=== PATIENT | female | born 1955 | race Asian ===

== ENCOUNTER → 2018-10-27 | Outpatient (CLI) | payer MEDICARE ==
[~2018-10-27] MED LIST: ALBU8.5H8 INH; ALLO300T PO; AMLO-150 PO; AMLO2.5T2 PO; ATOR20TA37 PO; BUDE10.2 INH; CEFD300C37 PO; CETI10CA PO; COLC0.6T37 PO; DIAZ5TAB4 PO; DOCU-131 PO; ERGO500017 PO; FLUT16SP2 INH; FLUT1BLS IH; FURO-93 PO; GLIM4TAB2 PO; HYDR-2442 PO; HYDR-3237 PO; HYDR-3341 PO; INSU100C SQ; INSU100V13 SC; INSU100V9 SC; LATA7.5D EACH EAR; LETR2.5T PO; LEVO250T8 PO; LEVO25TA2 PO; LEVO25TA4 PO; LINA145C PO; LIRA0.6P INJ; LISI-170 PO; LISI1TAB3 PO; LORA0.5T PO; MECL25TA4 PO; METO10TA2 PO; MONT10TA6 PO; NYST1000 PO; OMEP-110 PO; ONDA4TAB10 PO; ONDA4TAB13 PO; OXYC-302 PO; OXYC10TA6 PO; PANT40TA3 PO; PANT40TA5 PO; PARO10TA3 PO; ROSU20TA2 PO; TIOT18CA INH; TRAZ-137 PO; [UNRECOGNIZED DRUG - CODE] PO
== END | disposition home or self-care (01) ==
LOC: CFH 14:33
PROVIDERS: ATTEND Nurse Practitioner Family
DX: N63.20 Unspecified lump in the left breast, unspecified quadrant (principal); N64.4 Mastodynia; N19 Unspecified kidney failure; Z85.3 Personal history of malignant neoplasm of breast; Z99.2 Dependence on renal dialysis
CPT/HCPCS: 76641; 77066; G0279

== ENCOUNTER 2018-10-30 00:11 | Emergency (ER) | payer MEDICARE ==
[~2018-10-30] VITALS: Ht 157.5 cm; Wt 80.0 kg
[~2018-10-30 00:11] MED LIST changes: -LINA145C PO; -OXYC10TA6 PO
--- NOTE | 2018-10-30 00:17 | NUR ---
PT TO LOBBY, WAIT TIME EXPLAINED.
--- NOTE | 2018-10-30 00:40 | NUR ---
PT AMBULATED TO ROOM, AWAIT
[2018-10-30] MEDS ORDERED: METHYLNALTREXONE 12 MG/0.6 ML SQ ONE (01:00)
[2018-10-30] MEDS ORDERED: ZIPRASIDONE 20 MG INJ IM ONE ×2 (01:00→01:04)
[2018-10-30 01:04] LABS: BASOPHILS # (AUTO) 0.06 x10^3/uL (0-0.1); BASOPHILS % (AUTO) 1 % (0-1); EOSINOPHILS # (AUTO) 0.67 x10^3/uL (0-0.4); EOSINOPHILS % (AUTO) 9 % (1-7); LYMPHOCYTES # (AUTO) 1.21 x10^3/uL (1-3.4); LYMPHOCYTES % (AUTO) 16 % (22-44); MD NO; MEAN CORPUSCULAR HEMOGLOBIN 30.2 pg (27.0-34.8); MEAN CORPUSCULAR HGB CONC 33.1 g/dL (32.4-35.8); MEAN CORPUSCULAR VOLUME 91.1 fL (80-100); MEAN PLATELET VOLUME 7.1 fL (7.4-10.4); MONOCYTES # (AUTO) 0.66 x10^3/uL (0.2-0.8); MONOCYTES % (AUTO) 8 % (2-9); NEUTROPHILS # (AUTO) 5.18 x10^3/uL (1.8-6.8); NEUTROPHILS % (AUTO) 67 % (42-75); PLATELET COUNT 264 x10^3/uL (130-400); RED BLOOD COUNT 3.31 x10^6/uL (3.82-5.3); RED CELL DISTRIBUTION WIDTH 18.3 % (9.6-15.2)
[2018-10-30 01:16] LABS: ALANINE AMINOTRANSFERASE 17 U/L (12-78); ALBUMIN 2.9 g/dL (3.4-5.0); ANION GAP 8 mmol/L (5-15); CALCIUM 8.3 mg/dL (8.5-10.1); CHLORIDE 101 mmol/L (98-107); CREATININE 3.96 mg/dL (0.55-1.02)
[2018-10-30 01:21] LABS: ALKALINE PHOSPHATASE 116 U/L (45-117); BILIRUBIN,TOTAL 0.6 mg/dL (0.2-1.0); TOTAL PROTEIN 6.1 g/dL (6.4-8.2); TROPONIN I 0.021 ng/mL (0.000-0.045)
--- NOTE | 2018-10-30 02:40 | NUR ---
ASSISTED PT TO BEDSIDE COMMODE. PT ABLE TO PROVIDE URINE SAMPLE. URINE SENT TO LAB. PT C/O BEING DIZZY. ERP AWARE. PT BACK IN BED, BILAT BEDRAILS UP. PT DESATING TO 85% ON RA. PT REPOSITIONED IN BED. WILL CONTINUE TO MONITOR.
[2018-10-30] MEDS ORDERED: LINA145C PO (02:48)
[2018-10-30] MEDS ORDERED: OXYC10TA6 PO (02:48)
[2018-10-30 02:49] LABS: MICROSCOPIC AUTO
[2018-10-30 02:50] LABS: CULTURE INDICATED? NO
[2018-10-30] MEDS ORDERED: MECLIZINE CHEWABLE 25 MG TAB PO ONE (03:00)
--- NOTE | 2018-10-30 03:14 | NUR ---
UNABLE TO DC PT, PT IS DESTING TO 83% ON RA. PT PLACED ON 3L O2. PT NOW SATING 98%. WILL CONTINUE TO MONITOR.
--- NOTE | 2018-10-30 03:38 | NUR ---
O2 DECREASED TO 1L PER N/C. PT SATING 98%.
[2018-10-30] MEDS ORDERED: MECLIZINE CHEWABLE 25 MG TAB ONE (03:47)
[2018-10-30 04:05] VITALS: BP 163/58
== END 2018-10-30 04:07 | disposition home or self-care (01) ==
LOC: ED 03:55
DX: R10.84 Generalized abdominal pain (principal); R11.2 Nausea with vomiting, unspecified; K59.00 Constipation, unspecified; E11.22 Type 2 diabetes mellitus with diabetic chronic kidney disease; I12.9 Hypertensive chronic kidney disease with stage 1 through stage 4 chronic kidney disease, or unspecified chronic kidney disease; N18.9 Chronic kidney disease, unspecified; J44.9 Chronic obstructive pulmonary disease, unspecified; Z90.710 Acquired absence of both cervix and uterus; Z87.891 Personal history of nicotine dependence; Z88.8 Allergy status to other drugs, medicaments and biological substances; Z85.3 Personal history of malignant neoplasm of breast
CPT/HCPCS: 36415; 74176; 80053; 81001; 83690; 84484; 85025; 96372; 99284; J3486

== ENCOUNTER 2018-11-21 16:27 | Emergency (ER) | payer MEDICARE ==
[~2018-11-21] VITALS: Ht 154.9 cm; Wt 79.0 kg
[~2018-11-21 16:27] MED LIST changes: +LINA145C PO; +OXYC10TA6 PO
--- NOTE | 2018-11-21 16:50 | NUR ---
First contact with pt. Pt c/o diffuse abd pain, states no BM x7 days. Pt states tried multiple OTC remedies without relief. Pt also states that her dialysis cath in her R upper chest is itching. Pt c/o DEMARCO and N/V as well. Pt placed in gown, positioned for comfort in bed with warm blanket. Continuous oxygen and BP monitors applied, all safety measures observed.
--- NOTE | 2018-11-21 17:02 | NUR ---
Dr. Kahn at bedside to evaluate pt.
[2018-11-21] MEDS ORDERED: ONDANSETRON ODT 8 MG ONE (17:08)
--- NOTE | 2018-11-21 17:13 | NUR ---
Pt medicated per OCT. Pt to xray via [place] at this time.
[2018-11-21] MEDS ORDERED: ONDANSETRON ODT 8 MG PO ONE (17:30)
--- NOTE | 2018-11-21 17:44 | NUR ---
Pt back from xray, resting in bed, no longer nauseous after meds.
[2018-11-21 17:59] LABS: ALBUMIN 2.8 g/dL (3.4-5.0); ANION GAP 8 mmol/L (5-15); CALCIUM 8.2 mg/dL (8.5-10.1); CHLORIDE 101 mmol/L (98-107); CREATININE 3.18 mg/dL (0.55-1.02)
[2018-11-21 18:06] LABS: BASOPHILS # (AUTO) 0.02 x10^3/uL (0-0.1); BASOPHILS % (AUTO) 0 % (0-1); EOSINOPHILS # (AUTO) 0.12 x10^3/uL (0-0.4); EOSINOPHILS % (AUTO) 2 % (1-7); LYMPHOCYTES # (AUTO) 0.66 x10^3/uL (1-3.4); LYMPHOCYTES % (AUTO) 10 % (22-44); MD NO; MEAN CORPUSCULAR HGB CONC 33.4 g/dL (32.4-35.8); MEAN PLATELET VOLUME 7.5 fL (7.4-10.4); MONOCYTES # (AUTO) 0.45 x10^3/uL (0.2-0.8); MONOCYTES % (AUTO) 7 % (2-9); NEUTROPHILS # (AUTO) 5.09 x10^3/uL (1.8-6.8); NEUTROPHILS % (AUTO) 80 % (42-75); PLATELET COUNT 205 x10^3/uL (130-400); RED BLOOD COUNT 3.32 x10^6/uL (3.82-5.3); RED CELL DISTRIBUTION WIDTH 18.2 % (9.6-15.2)
[2018-11-21] MEDS ORDERED: METHYLNALTREXONE 12 MG/0.6 ML SQ ONE (18:30)
[2018-11-21] MEDS ORDERED: PINK LADY ENEMA 490 ML BOTTLE PR ONE (18:30)
--- NOTE | 2018-11-21 18:35 | NUR ---
[place] lady enema administered. Pt attempting to retain enema at this time.
--- NOTE | 2018-11-21 18:38 | NUR ---
Pt states she is unable to hold enema in any longer. Pt up to bedside commode to attempt BM.
--- NOTE | 2018-11-21 18:52 | NUR ---
Pt able to pass moderate amount of stool. Pt states she feels a little better "but there's still something there." Reported to Dr. Kahn.
--- NOTE | 2018-11-21 19:00 | NUR ---
REPORT RECEIVED FROM BRAYAN LEROY. PT RESTING QUIETLY, NO DISTRESS NOTED, BEDSIDE COMMODE IN ROOM, CALL LIGHT IN REACH
[2018-11-21 20:03] VITALS: BP 176/68
== END 2018-11-21 20:27 | disposition home or self-care (01) ==
LOC: ED 17:51
DX: K59.00 Constipation, unspecified (principal); R10.84 Generalized abdominal pain; K21.9 Gastro-esophageal reflux disease without esophagitis; I12.9 Hypertensive chronic kidney disease with stage 1 through stage 4 chronic kidney disease, or unspecified chronic kidney disease; E11.22 Type 2 diabetes mellitus with diabetic chronic kidney disease; N18.9 Chronic kidney disease, unspecified; E03.9 Hypothyroidism, unspecified; J44.9 Chronic obstructive pulmonary disease, unspecified; Z90.49 Acquired absence of other specified parts of digestive tract; Z88.2 Allergy status to sulfonamides; Z88.8 Allergy status to other drugs, medicaments and biological substances
CPT/HCPCS: 36415; 74021; 80048; 82040; 83690; 85025; 96372; 99284; Q0162

== ENCOUNTER 2019-08-31 09:22 | Outpatient (CLI) | payer MEDICARE ==
[~2019-08-31 09:22] MED LIST changes: +CARV6.252 PO; +FLUT1BLS INH; -GLIM4TAB2 PO; +GLIM4TAB8 PO; -LETR2.5T PO; +LETR2.5T3 PO; +LISI1TAB23 PO; -LISI1TAB3 PO; +MECL-101 PO; -MECL25TA4 PO; +NOVALOG SQ; +OMEP10CA5 PO; -TRAZ-137 PO; +TRAZ-175 PO
== END 2019-08-31 23:59 | disposition home or self-care (01) ==
LOC: CFH 09:22
PROVIDERS: ATTEND Internal Medicine
DX: Z13.820 Encounter for screening for osteoporosis (principal); C50.412 Malignant neoplasm of upper-outer quadrant of left female breast; R92.2 Inconclusive mammogram; Z78.0 Asymptomatic menopausal state
CPT/HCPCS: 76642; 77066; 77080; G0279

== ENCOUNTER 2020-02-02 10:34 | Emergency (ER) | payer MEDICARE ==
[~2020-02-02] VITALS: Ht 154.9 cm; Wt 57.7 kg
--- NOTE | 2020-02-02 11:04 | NUR ---
PT C/O HARDER TO BREATHE AFTER MISSING DIALYSIS ON THURSDAY. EAR INFECTION BEING TREATED AFTER SEEN AT A FEW DAYS AGO. LOWER ABD PAIN STARTED THIS AM AFTER EATING STEAK AND EGGS FOR BREAKFAST. PT CONNECTED TO MONITORING. CALL LIGHT IN REACH. SPOUSE AT BEDSIDE.
[2020-02-02 12:02] LABS: BASOPHILS # (AUTO) 0.02 x10^3/uL (0-0.1); BASOPHILS % (AUTO) 1 % (0-1); EOSINOPHILS % (AUTO) 5 % (1-7); LYMPHOCYTES # (AUTO) 1.04 x10^3/uL (1-3.4); LYMPHOCYTES % (AUTO) 24 % (22-44); MD NO; MEAN CORPUSCULAR HEMOGLOBIN 32.8 pg (27.0-34.8); MEAN CORPUSCULAR HGB CONC 33.2 g/dL (32.4-35.8); MEAN PLATELET VOLUME 7.3 fL (7.4-10.4); MONOCYTES # (AUTO) 0.31 x10^3/uL (0.2-0.8); MONOCYTES % (AUTO) 7 % (2-9); NEUTROPHILS # (AUTO) 2.78 x10^3/uL (1.8-6.8); NEUTROPHILS % (AUTO) 64 % (42-75); PLATELET COUNT 226 x10^3/uL (130-400); RED BLOOD COUNT 3.44 x10^6/uL (3.82-5.3); RED CELL DISTRIBUTION WIDTH 14.9 % (9.6-15.2)
[2020-02-02] MEDS ORDERED: ACETAMINOPHEN 325 MG TABLET ONE (12:12)
[2020-02-02 12:15] VITALS: BP 125/58
[2020-02-02 12:16] LABS: ALBUMIN 3.4 g/dL (3.4-5.0); CALCIUM 8.8 mg/dL (8.5-10.1)
--- NOTE | 2020-02-02 12:16 | NUR ---
PT C/O GENERALIZED PAIN. MEDS ADMIN PER OCT.
[2020-02-02 12:21] LABS: ALANINE AMINOTRANSFERASE 13 U/L (12-78); ALKALINE PHOSPHATASE 83 U/L (45-117); BILIRUBIN,TOTAL 0.6 mg/dL (0.2-1.0); CREATININE 7.75 mg/dL (0.55-1.02); TOTAL PROTEIN 6.3 g/dL (6.4-8.2); TROPONIN I < 0.015 ng/mL (0.000-0.045)
[2020-02-02 12:29] LABS: ANION GAP 12 mmol/L (5-15); CHLORIDE 92 mmol/L (98-107)
[2020-02-02] MEDS ORDERED: ACETAMINOPHEN 325 MG TABLET PO ONE (12:30)
--- NOTE | 2020-02-02 12:34 | NUR ---
ALL RESULTS ARE BACK AT THIS TIME. CHART UP FOR RECHECK.
--- NOTE | 2020-02-02 12:51 | NUR ---
PROVIDER PAGED NEPHROLOGY FOR CONSULT.
[2020-02-02] MEDS ORDERED: ONDANSETRON ODT 4 MG PO ONE (13:30)
[2020-02-02] MEDS ORDERED: ONDANSETRON ODT 4 MG ONE (13:58)
--- NOTE | 2020-02-02 13:59 | NUR ---
OPERATOR LIGHTS PER MAR.
== END 2020-02-02 14:12 | disposition home or self-care (01) ==
LOC: ED 13:13
DX: R06.00 Dyspnea, unspecified (principal); R11.0 Nausea; I12.0 Hypertensive chronic kidney disease with stage 5 chronic kidney disease or end stage renal disease; R06.02 Shortness of breath; R42 Dizziness and giddiness; R94.31 Abnormal electrocardiogram [ECG] [EKG]; N18.6 End stage renal disease; J44.9 Chronic obstructive pulmonary disease, unspecified; E11.22 Type 2 diabetes mellitus with diabetic chronic kidney disease; K21.9 Gastro-esophageal reflux disease without esophagitis; E03.9 Hypothyroidism, unspecified
CPT/HCPCS: 36415; 71045; 80053; 83690; 84484; 85025; 93005; 99285; Q0162

== ENCOUNTER → 2020-02-23 | Outpatient (CLI) | payer MEDICARE ==
[~2020-02-23] MED LIST changes: +REGADENOSON 0.4 MG/5 ML SYRINGE ONE
== END | disposition home or self-care (01) ==
LOC: CFH 09:50
PROVIDERS: ATTEND Internal Medicine Cardiovascular Disease
DX: I08.0 Rheumatic disorders of both mitral and aortic valves (principal); I10 Essential (primary) hypertension; I48.20 Chronic atrial fibrillation, unspecified; E78.5 Hyperlipidemia, unspecified; E11.9 Type 2 diabetes mellitus without complications; Z85.3 Personal history of malignant neoplasm of breast; Z87.891 Personal history of nicotine dependence
CPT/HCPCS: 78452; 93017; 93306; A9502; J2785

== ENCOUNTER 2020-03-20 08:52 | Day surgery (SDC) | payer MEDICARE ==
[~2020-03-20] VITALS: Ht 154.9 cm; Wt 57.0 kg
[~2020-03-20 08:52] MED LIST changes: -PANT40TA5 PO; +PANT40TA6 PO; -REGADENOSON 0.4 MG/5 ML SYRINGE ONE
[2020-03-20 09:27] VITALS: BP 126/54
[2020-03-20] MEDS ORDERED: DICY20TA3 PO (09:37)
[2020-03-20] MEDS ORDERED: FLUT9.9S NAS (09:37)
[2020-03-20] MEDS ORDERED: HYDR100T25 PO (09:37)
[2020-03-20] MEDS ORDERED: CARV3.122 PO (09:37)
[2020-03-20] MEDS ORDERED: DOCU100C33 PO (09:37)
[2020-03-20] MEDS ORDERED: OMEG-157 PO (09:37)
[2020-03-20] MEDS ORDERED: ATOR40TA PO (09:41)
[2020-03-20] MEDS ORDERED: LATA7.5D EACHEYE (09:41)
[2020-03-20] MEDS ORDERED: ONDA8TAB16 SL (09:41)
[2020-03-20] MEDS ORDERED: POLY17PO5 PO (09:41)
[2020-03-20] MEDS ORDERED: LORA-446 PO (09:41)
[2020-03-20 10:58] LABS: BASOPHILS # (AUTO) 0.03 x10^3/uL (0-0.1); BASOPHILS % (AUTO) 1 % (0-1); EOSINOPHILS # (AUTO) 0.26 x10^3/uL (0-0.4); EOSINOPHILS % (AUTO) 8 % (1-7); LYMPHOCYTES % (AUTO) 36 % (22-44); MD NO; MEAN CORPUSCULAR HEMOGLOBIN 33.7 pg (27.0-34.8); MEAN CORPUSCULAR HGB CONC 33.3 g/dL (32.4-35.8); MEAN PLATELET VOLUME 7.1 fL (7.4-10.4); MONOCYTES # (AUTO) 0.39 x10^3/uL (0.2-0.8); MONOCYTES % (AUTO) 11 % (2-9); NEUTROPHILS # (AUTO) 1.51 x10^3/uL (1.8-6.8); NEUTROPHILS % (AUTO) 45 % (42-75); PLATELET COUNT 278 x10^3/uL (130-400); RED BLOOD COUNT 3.07 x10^6/uL (3.82-5.3); RED CELL DISTRIBUTION WIDTH 16.7 % (9.6-15.2)
[2020-03-20 11:10] LABS: ANION GAP 7 mmol/L (5-15); CALCIUM 9.6 mg/dL (8.5-10.1); CHLORIDE 100 mmol/L (98-107); CREATININE 4.56 mg/dL (0.55-1.02)
[2020-03-20] MEDS ORDERED: HEPARIN 1,000 UNITS/ML, 10ML ONE (12:55)
[2020-03-20] MEDS ORDERED: MIDAZOLAM 1 MG/ML, 2ML ONE (12:55)
[2020-03-20] MEDS ORDERED: FENTANYL PF 100 MCG/2ML ONE (12:55)
[2020-03-20] MEDS ORDERED: LIDOCAINE 1%, 20ML ONE (12:55)
[2020-03-20] MEDS ORDERED: NITROGLYCERIN 0.4 MG BOTTLE (25 TABS) SL ONE (13:30)
[2020-03-20] MEDS ORDERED: SODIUM CHLORIDE 0.9% 1,000 ML IV SCH (13:42)
[2020-03-20] MEDS ORDERED: OxyconTIN ER 10 MG TAB.ER ONE (14:36)
[2020-03-20] MEDS ORDERED: OXYcodone IR 5MG TABLET ONE (14:40)
[2020-03-20] MEDS ORDERED: OXYcodone IR 5MG TABLET PO PRN (15:00)
== END 2020-03-20 17:14 | disposition home or self-care (01) ==
LOC: CACL 08:52
PROVIDERS: ATTEND Internal Medicine Cardiovascular Disease
DX: Z01.810 Encounter for preprocedural cardiovascular examination (principal); I25.10 Atherosclerotic heart disease of native coronary artery without angina pectoris; E11.22 Type 2 diabetes mellitus with diabetic chronic kidney disease; I12.0 Hypertensive chronic kidney disease with stage 5 chronic kidney disease or end stage renal disease; N18.5 Chronic kidney disease, stage 5; E78.5 Hyperlipidemia, unspecified; M10.9 Gout, unspecified; Z79.4 Long term (current) use of insulin; Z79.891 Long term (current) use of opiate analgesic; Z79.899 Other long term (current) drug therapy; Z88.2 Allergy status to sulfonamides; Z99.2 Dependence on renal dialysis
CPT/HCPCS: 36415; 80048; 85025; 93458; C1760; C1894; J1644; J2250; J3010; Q9967

== ENCOUNTER 2020-06-14 16:50 | Emergency (ER) | payer MEDICARE ==
[~2020-06-14] VITALS: Ht 154.9 cm; Wt 62.0 kg
[~2020-06-14 16:50] MED LIST changes: +ATOR40TA PO; +CARV3.122 PO; +DICY20TA3 PO; +DOCU100C33 PO; +FLUT9.9S NAS; +HYDR100T25 PO; +LATA7.5D EACHEYE; +LORA-446 PO; +OMEG-157 PO; +ONDA8TAB16 SL; +POLY17PO5 PO
--- NOTE | 2020-06-14 18:13 | NUR ---
PT REPORTS THAT SHE HAS BEEN CONSTIPATED FOR ABOUT 3 DAYS. PT STATES "I USED A SUPPOSITORY AND THEN FELT LIKE SOMETHING WAS GOING TO COME OUT SO I DIG WITH GLOVES IN MY BUTT BUT THEN THERE WAS BLOOD". PT ALSO REPORTS FEELING DIZZY AND THAT SHE MISSED HER DIALYSIS TODAY.
--- NOTE | 2020-06-14 18:18 | NUR ---
GALLERY OR MUSEUM GUIDE: PT TO ROOM FROM LOBBY
[2020-06-14 19:08] LABS: ANION GAP 12 mmol/L (5-15); CALCIUM 9.2 mg/dL (8.5-10.1); CHLORIDE 92 mmol/L (98-107); CREATININE 7.39 mg/dL (0.55-1.02)
[2020-06-14 19:12] LABS: BASOPHILS % (AUTO) 1 % (0-1); EOSINOPHILS % (AUTO) 16 % (1-7); LYMPHOCYTES % (AUTO) 18 % (22-44); MEAN CORPUSCULAR HEMOGLOBIN 32.1 pg (27.0-34.8); MEAN CORPUSCULAR HGB CONC 32.9 g/dL (32.4-35.8); MEAN PLATELET VOLUME 6.6 fL (7.4-10.4); MONOCYTES % (AUTO) 10 % (2-9); NEUTROPHILS % (AUTO) 54 % (42-75); PLATELET COUNT 273 x10^3/uL (130-400); RED BLOOD COUNT 3.05 x10^6/uL (3.82-5.3); RED CELL DISTRIBUTION WIDTH 14.9 % (9.6-15.2)
[2020-06-14 19:15] LABS: MD NO
[2020-06-14 19:38] VITALS: BP 158/68
== END 2020-06-14 20:06 | disposition home or self-care (01) ==
LOC: ED 19:28
DX: K64.8 Other hemorrhoids (principal); K62.5 Hemorrhage of anus and rectum; I12.0 Hypertensive chronic kidney disease with stage 5 chronic kidney disease or end stage renal disease; N18.6 End stage renal disease; E11.22 Type 2 diabetes mellitus with diabetic chronic kidney disease; I48.92 Unspecified atrial flutter; I44.2 Atrioventricular block, complete; J44.9 Chronic obstructive pulmonary disease, unspecified; K21.9 Gastro-esophageal reflux disease without esophagitis; E03.9 Hypothyroidism, unspecified; Z99.2 Dependence on renal dialysis; Z90.49 Acquired absence of other specified parts of digestive tract; Z90.710 Acquired absence of both cervix and uterus; Z87.891 Personal history of nicotine dependence
CPT/HCPCS: 36415; 80048; 85025; 93005; 99284

== ENCOUNTER → 2021-04-15 | Outpatient (CLI) | payer MEDICARE ==
[~2021-04-15] MED LIST changes: -DICY20TA3 PO; +DICY20TA4 PO; -HYDR-2442 PO; +HYDR-3565 PO; -OXYC-302 PO; +OXYC1TAB14 PO; +REGADENOSON 0.4 MG/5 ML SYRINGE ONE
== END | disposition home or self-care (01) ==
LOC: CFH 06:44
PROVIDERS: ATTEND Internal Medicine Clinical Cardiac Electrophysiology
DX: I08.8 Other rheumatic multiple valve diseases (principal); I11.9 Hypertensive heart disease without heart failure
CPT/HCPCS: 93306; 93356; J2785